=== PATIENT | female | born 1995 | race Caucasian/White ===

== ENCOUNTER 2020-11-20 00:57 | Outpatient (CLI) | payer MEDICAID ==
[~2020-11-20] VITALS: Ht 157.5 cm; Wt 70.0 kg
--- NOTE | 2020-11-20 01:05 | NUR ---
0105- PT PRESENTS TO LDR COMPLAINING OF CONTRACTIONS. AMBULATORY TO ROOM LR3, CHANGED INTO GOWN. 0114- EFM X2 APPLIED. PT DENIES LEAKING AMNIOTIC FLUID OR VAGINAL BLEEDING. STATES SHE FEELS BABY IS MOVING LESS THE LAST 2 DAYS, BUT STILL FEELING MOVEMENT. STATE SHE HAS BEEN ARIA MOST OF THE DAY BUT FEELS THEY ARE STRONGER NOW. PLAN OF CARE FOR LABOR CHECK DISCUSSED AND QUESTIONS ANSWERED. 0120- SVE BY THIS NURSE -. DISCUSSED WATCHING PT ON MONITORS FOR ABOUT AN HOUR AND RECHECKING CERVIX. PT IS AGREEABLE WITH THIS PLAN OF CARE. 0130- NURSING ADMISSION HISTORY AND ASSESSMENT COMPLETED. ORAL HYDRATION PROVIDED. 0200- PT SITTING A LITTLE FLAT, REPOSITIONED. 0230- PT REPORTS HER CONTRACTIONS ARE ABOUT THE SAME. SVE BY THIS NURSE UNCHANGED. DISCUSSED WITH PT GOING HOME AT THIS POINT AND SHE IS OK WITH THIS. PT OFF MONITORS. 0235- DR PETERSEN CALLED CHARTED AND ORDERS RECEIVED. 0250- DISMISSAL INSTRUCTIONS GIVEN AND PT VERBALIZES UNDERSTANDING. PT IS DISMISSED TO HOME AMBULATORY ACCOMPANIED BY SPOUSE.
[2020-11-20 01:30] VITALS: BP 112/64; PULSE 99; TEMP 98.6
[2020-11-20] MEDS ORDERED: PRENATAL VITAMI1 TA3 PO (01:35)
[2020-11-20] MEDS ORDERED: PRILOSEC10 MG PO (01:36)
[2021-04-25] MEDS ORDERED: PERCOCET 325 MG1 TA2 PO (12:11)
== END 2020-11-20 02:50 | disposition home or self-care (01) ==
LOC: LDRO 00:57 → LDR 01:23 → LDRO 02:50
DX: O62.9 Abnormality of forces of labor, unspecified (principal); Z3A.39 39 weeks gestation of pregnancy
CPT/HCPCS: OP

== ENCOUNTER 2020-11-20 16:17 | Outpatient (CLI) | payer MEDICAID ==
[~2020-11-20] VITALS: Ht 157.5 cm; Wt 70.5 kg
[~2020-11-20 16:17] MED LIST: PRENATAL VITAMI1 TA3 PO; PRILOSEC10 MG PO
--- NOTE | 2020-11-20 16:30 | NUR ---
Pt arrived on unit ambulatory with complaints of contractions and increased discharge. Pt denies any vaginal bleeding and reports normal movement. EFM and toco monitors started. Vital signs WNL. SVE done 1- with negative amnio-trace and no fluid on exam. Information reviewed with Dr. Walker. Orders for labor assessment received.
[2020-11-20 17:03] VITALS: BP 114/65; PULSE 98; TEMP 98.2
[2021-04-25] MEDS ORDERED: PERCOCET 325 MG1 TA2 PO (12:11)
== END 2020-11-20 17:15 | disposition home or self-care (01) ==
LOC: LDRO 16:17
DX: O62.9 Abnormality of forces of labor, unspecified (principal); Z3A.39 39 weeks gestation of pregnancy

== ENCOUNTER 2020-11-27 14:37 | Inpatient (IN) | payer MEDICAID ==
[~2020-11-27] VITALS: Ht 157.5 cm; Wt 68.6 kg
[2020-11-27] VITALS (32 sets, daily range): BP systolic 101–139; BP diastolic 55–79; PULSE 67–101; TEMP 97.6–98.3
--- NOTE | 2020-11-27 14:40 | NUR ---
Patient arrives ambulatory with spouse for direct admission and induction of labor for GINA of 0 in office today. Patient reports normal movement, denies ROM or vaginal bleeding. Patient changes into gown, EFM explained and placed. VS obtained. Previous orders per Dr. Walker to admit and start Pitocin induction. 1505- IV started by Patricia Mcdonnell RN. Labs obtained and sent. LR infusing per protocol. Consents explained and signed. Assessment completed. Reviewed plan of care for induction, patient agrees and denies questions. Report to Patricia Umaña RN who assumes care of patient.
--- NOTE | 2020-11-27 14:48 | NUR ---
EFM placed on patient.
[2020-11-27 15:37] LABS: HEMOGLOBIN 10.5 g/dl (12.5-16.0); MEAN CELL VOLUME 82 fl (80.0-100.0); MEAN CORPUSCULAR HEMOGLOBIN 27 pg (27.0-31.0); MEAN CORPUSCULAR HGB CONC 33 g/dl (33.0-37.0); MEAN PLATELET VOLUME 9.4 fl (7.4-10.4); PLATELET COUNT 352 K/mm3 (130-400); RED BLOOD COUNT 3.85 M/mm3 (4.10-5.30); REDCELL DISTRIBUTION WIDTH-CV 14.5 % (11.5-14.5)
[2020-11-27 15:45] LABS: HEMATOCRIT 31.6 % (37.0-47.0)
--- NOTE | 2020-11-27 16:00 | NUR ---
Pit start @ 2mU/min @ this time, after noting reactive strip. Explanation to patient and spouse. Verbalizes understanding. Patient mentions that she was here for possible leaking fluid one week ago, that amnitrace was negative. Reports since then, her underwear have been constantly moist. Denies any leaking down legs.
--- NOTE | 2020-11-27 16:39 | NUR ---
Intermittent late decelerations noted. Repositioned to right lateral. Will continue to monitor.
[2020-11-27 17:29] LABS: BAND 13 % (0-10); LYMPHOCYTE 12 % (20.0-51.0); METAMYELOCYTE 1 % (0-0); NEUTROPHILS 68 % (42.0-75.2)
[2020-11-27 17:33] LABS: PLATELET ESTIMATE NORMAL (NORMAL)
--- NOTE | 2020-11-27 18:29 | NUR ---
Report given to NATALIE Polanco, who will resume care from this point forward.
--- NOTE | 2020-11-27 20:00 | NUR ---
1999- DR. RAPP AND THIS RN TO BEDSIDE FOR SVE EVALUATION. SVE UNCHANGED PER PROVIDER. STILL /-3. PROVIDER GAVE VERBAL ORDER TO INCREASE PITOCIN TOLERATED AND TO GO UP TO 30 IF NEEDED. THIS RN CHANGED PITOCIN FROM 16 TO 18 AT THIS TIME AND VERBALIZED UNDERSTANDING OF INCREASING PITOCIN. PATIENT ALSO VERBALIZED AT THIS TIME THAT SHE WOULD LIKE HER EPIDURAL. DISCUSSED PLAN AND THAT I WOULD CALL [facility] AND GET THEM HERE. SHE VERBALIZED UNDERSTANDING WITH NO FURTHER QUESTIONS AND CALL LIGHT WITHIN REACH.
--- NOTE | 2020-11-27 22:30 | NUR ---
2230- THIS RN TO BEDSIDE TO REPOSITION PATIENT. PATIENT REQUESTED SVE, SO THIS RN CHECKED PATIENT. 2232- SVE REVEALED 4/70/-3 WITH SOME BLOODY SHOW. 2234- PATIENT THEN ASSISTED TO ETHAN POSITION. 2237- FHR VARIABLE EARLY DECELERATION DOWN TO 70'S NOTED. PATIENT SAT BACK IN THE BED AND REPOSITIONED. 2240- FHR VARIABLE EARLY DECELERATION DOWN TO 100'S NOTED. 2242- FHR VARIABLE EARLY DECELERATION DOWN TO 70S NOTED AGAIN. HELPED PATIENT REPOSITIONED TO A WEDGE LEFT POSITION. 2245- FHR VARIABLE DECELERATION AUDIBLE, BUT NOT TRACING WELL. REPOSITIONED TO A LEFT LATERAL POSITION. 224- BLOOD PRESSURE TAKING AND NOTED TO BE 96/51 AND PATIENT REPORTED FEELING A LITTLE LIGHT HEADED. FLUIDS OPENED WIDE FOR BOLUS AT THIS TIME. THIS RN RETOOK BP AND IT WAS 100/55 AND PATIENT VERBALIZED FEELING A LITTLE BETTER. THIS RN WAITED A MINUTE OR SO AND RETOOK BP AND IT WAS 95/56 AND PATIENT VERBALIZED FEELING A LITTLE FUNNY. THIS RN ASKED CHARGE TO BRING EPHEDERINE IN THE ROOM SHE WAS BRINGING BABY STUFF FOR DELIVERY AT THIS TIME TO THE ROOM 225- 10MG OF EPHEDERINE GIVEN IV BY THIS RN. BP NOTED TO BE 96/54 AT THIS TIME. 5- BP NOTED TO BE 109/59 AND PATIENT VERBALIZED THAT SHE WAS STARTED TO FEEL BETTER BUT FELT A LITTLE SHAKY. OFFERED WARM BLANKET AND PATINET ACCEPTED. 2300- APPLE JUICE GIVEN TO PATIENT PER HER REQUEST. BP NOTED TO BE 109/62 AND PATIENT VERBALIZED FEELING MUCH BETTER. THIS RN SLOWED FLUIDS DOWN AND PATIENT DENIED FURTHER NEEDS. CALL LIGHT WITHIN REACH.
[2020-11-28] VITALS (19 sets, daily range): BP systolic 98–121; BP diastolic 48–85; PULSE 67–94; TEMP 97.6–98
--- NOTE | 2020-11-28 01:40 | NUR ---
0140- DR. SALAZAR AND THIS RN TO BEDSIDE FOR SVE. PATIENT IS COMPLETE AND +2. PATIENT AND ROOM PREPPED FOR DELIVERY. STAFF NOTIFIED AND NURSERY ON THERE WAY. 0148- FIRST PUSH WITH PROVIDER. 0149- HEAD DELIVERED AND TIGHT NUCHALX2 NOTED BY PROVIDER. PROVIDER CLAMPED AND CUT CORD TO REDUCE. ONCE THIS WAS DONE MOM PUSHED TO DELIVERY BODY 0150- OF VIABLE FEMALE INFANT. INFANT CLEANED AND SUCTIONED AND STIMULATED BY PROVIDER DURING THIS TIME. UMBILICAL CORD CLAMPED AND CUT BY FATHER. THEN WENT TO [facility] TO BE ASSESSED BY NURSERY NURSES. THEY ASSUMED CARE DURING THIS TIME. PITOCIN TURNED OFF DURING THIS TIME AND REPROGRAMMED FOR DELIVERY OF PLACENTA 0154- OF PLACENTA. PITOCIN TURNED ON PER PROTOCOL AT 333ML/HR. PROVIDER NOTED PATIENT WAS INTACT WITH A 2 SMALL ABRASIONS THAT DID NOT NEED STITCHES BY THE PATIENT'S URETHRA. DISCUSSED CARE FOR THESE. FUNDUS MASSAGED FIRM BY PROVIDER DURING THIS TIME. PROVIDER NOTED EBL TO BE 200. 0200- PATIENT AND ROOM CLEANED UP, VITALS STABLE, FUNDUS FIRM. NEW CHUX PAD, PERIDPAD AND ICEPACK TO PERINEUM. RECOVERY STARTED.
--- NOTE | 2020-11-28 05:15 | NUR ---
PATIENT UP TO RESTROOM FOR THE FIRST TIME. AMBULATED TO BATHROOM WITH NO ISSUES. PATIENT CLEANED UP AND CHANGED INTO CLEAN CLOTHES. PATIENT VOIDED 900 AT THIS TIME. PATIENT AMBULATED TO ROOM WITH NO COMPLICATIONS AND WAS ORIENTATED TO ROOM. PATIENT DENIES NEEDS AT THIS TIME. CALL LIGHT WITHIN REACH.
--- NOTE | 2020-11-28 10:30 | NUR ---
Initial visit; Parents thanked Odd Ticket Clerk for offering congratulations and God's blessings for the of their daughter. Odd Ticket Clerk thanked family for choosing [facility]/via [facility].
[2020-11-29 00:30] VITALS: BP 125/60; PULSE 72; TEMP 98.5
[2020-11-29 04:35] VITALS: BP 93/69; PULSE 75; TEMP 97.9
[2020-11-29 07:30] VITALS: BP 93/48; PULSE 69
[2020-11-29] MEDS ORDERED: IBU800 M1 PO (08:45)
[2020-11-29] MEDS ORDERED: PERCOCET 325 MG1 TA2 PO (08:45)
--- NOTE | 2020-11-29 11:46 | NUR ---
1115 DISCHARGE INSTRUCTIONS REVIEWED WITH PATIENT. PATIENT VERBALIZED UNDERSTANDING. WILL GATHER ALL PERSONAL BELONGINGS AND LET THIS RN KNOW WHEN SHE IS READY TO LEAVE. 1140 ALL PERSONAL BELONGINGS GATHERED FROM PATIENT ROOM. PATIENT LEFT AMBULATORY AND IN NO APPARENT DISTRESS. PATIENT ACCOMPANIED BY SPOUSE AND THIS RN.
[2021-04-25] MEDS ORDERED: PERCOCET 325 MG1 TA2 PO (12:11)
== END 2020-11-29 11:40 | disposition home or self-care (01) | DRG 807 ==
LOC: LDRO 14:37 → LDR 14:40 → OB 14:40
PROVIDERS: ADMIT Obstetrics & Gynecology
PROC: 10E0XZZ Delivery of Products of Conception, External Approach (ICD-10-PCS; principal; 2020-11-27)
PROC: 3E033VJ Introduction of Other Hormone into Peripheral Vein, Percutaneous Approach (ICD-10-PCS; 2020-11-27)
DX: O41.03X0 Oligohydramnios, third trimester, not applicable or unspecified (principal); Z37.0 Single live birth; O48.0 Post-term pregnancy; O99.02 Anemia complicating childbirth; D64.9 Anemia, unspecified; O69.1XX0 Labor and delivery complicated by cord around neck, with compression, not applicable or unspecified; Z3A.40 40 weeks gestation of pregnancy
CPT/HCPCS: J2590; J7120

== ENCOUNTER 2021-02-09 15:39 | Emergency (ER) | payer MEDICAID ==
[~2021-02-09] VITALS: Ht 157.5 cm; Wt 59.1 kg
[~2021-02-09 15:39] MED LIST changes: +IBU800 M1 PO; +PERCOCET 325 MG1 TA2 PO
[2021-02-09 16:01] VITALS: TEMP 98.9
[2021-02-09 16:55] LABS: BASO # 0.1 (0.0-0.2); EOS # 0.4 (0.0-0.7); GRAN # 5.7 (1.4-6.5); GRAN % 57.4 % (42.2-75.2); HEMATOCRIT 38.7 % (37.0-47.0); HEMOGLOBIN 13.1 g/dl (12.5-16.0); LYMPH # 2.8 (1.2-3.4); LYMPH % 28.3 % (20.0-51.0); MEAN CELL VOLUME 83 fl (80.0-100.0); MEAN CORPUSCULAR HEMOGLOBIN 28 pg (27.0-31.0); MEAN CORPUSCULAR HGB CONC 34 g/dl (33.0-37.0); MONO # 0.9 (0.1-0.6); PLATELET COUNT 337 K/mm3 (130-400); RED BLOOD COUNT 4.65 M/mm3 (4.10-5.30); REDCELL DISTRIBUTION WIDTH-CV 18.8 % (11.5-14.5)
[2021-02-09 17:01] LABS: ALANINE AMINOTRANSFERASE 25 U/L (4-34); ALBUMIN 4.2 gm/dL (3.5-5.0); ALKALINE PHOSPHATASE 46 U/L (50-136); ANION GAP 8 mmol/L (7-16); AST,SGOT 26 U/L (15-37); BLOOD UREA NITROGEN 11 mg/dL (7-17); CALCIUM 9.2 mg/dL (8.4-10.2); CARBON DIOXIDE 23 mmol/L (22-30); CHLORIDE 110 mmol/L (98-107); CREATININE, serum 0.85 (0.52-1.25); GLUCOSE 100 mg/dL (74-106); POTASSIUM 3.5 mmol/L (3.4-5.0); SODIUM 141 mmol/L (137-145)
[2021-02-09 17:21] LABS: TROPONIN-I < 0.012 ng/mL (0.000-0.035)
[2021-02-09 18:19] VITALS: BP 106/65; PULSE 67
[2021-04-25] MEDS ORDERED: PERCOCET 325 MG1 TA2 PO (12:11)
== END 2021-02-09 18:19 | disposition home or self-care (01) ==
LOC: COL.ER 15:39
PROVIDERS: Personal Emergency Response Attendant
DX: R07.9 Chest pain, unspecified (principal); R51.9 Headache, unspecified; R00.2 Palpitations; R79.1 Abnormal coagulation profile; F17.290 Nicotine dependence, other tobacco product, uncomplicated
CPT/HCPCS: J0780; J1885; J7030

== ENCOUNTER 2021-04-19 11:48 | Day surgery (SDC) | payer MEDICAID ==
[~2021-04-19] VITALS: Ht 158.8 cm; Wt 59.4 kg
[2021-04-19 12:22] VITALS: BP 106/71; PULSE 78; TEMP 98.2
[2021-04-19] MEDS ORDERED: MOTRIN 600600 MG/TAB PO (15:26)
[2021-04-19] MEDS ORDERED: PERCOCET 325 MG1 TA2 PO (15:26)
[2021-04-19] MEDS ORDERED: COLACE 100100 MG/CAP PO (15:26)
[2021-04-19 16:36] VITALS: BP 107/65; PULSE 77; TEMP 97.7
--- NOTE | 2021-04-19 16:36 | NUR ---
The patient arrived back to Day 6 from the recovery room at this time. The patient appears alert and oriented and denies any pain or nausea at this time. The patient agrees to try some coffee and toast at this time. Post operative vital signs were started at this time. Call light is within reach. The patient denies any further needs at this time. Will continue to monitor the patient.
[2021-04-19 16:51] VITALS: BP 110/63; PULSE 85
--- NOTE | 2021-04-19 16:51 | NUR ---
The patient appears to be tolerating the food and drink well. Vital signs appear stable. Call light is within reach. The patient continues to deny any pain or nausea at this time. Will continue to monitor the patient.
[2021-04-19 17:06] VITALS: BP 108/68; PULSE 78
--- NOTE | 2021-04-19 17:06 | NUR ---
The patient has finished her food and drink and appeared to tolerate both well. The patient voices a desire to ambulate to the bathroom. She did so with a steady gait and voided without difficulty. The nurse instructed the patient to get dressed and notify the staff whe she is ready to review her discharge instructions. The patient's mother was brought back from the waiting room to be at her bedside.
--- NOTE | 2021-04-19 17:14 | NUR ---
Discharge instructions were reviewed with the patiet and her mother at this time. They both verbalized understanding and have no questions for the nurse at this time. The patient's IV to her left wrist was removed and a pressure dressing was applied to the site. The patient is dressed and ready to be escorted out.
--- NOTE | 2021-04-19 17:20 | NUR ---
The patient was escorted out via wheelchair to a private vehicle by NATALIE Ledezma. The patient's belongings and discharge paperwork were sent with her. The patient's mother is present to drive her home.
[2021-04-25] MEDS ORDERED: PERCOCET 325 MG1 TA2 PO (12:11)
== END 2021-04-19 17:20 | disposition home or self-care (01) ==
LOC: SDCO 11:48
DX: K64.2 Third degree hemorrhoids (principal); K64.4 Residual hemorrhoidal skin tags; D64.9 Anemia, unspecified; K21.9 Gastro-esophageal reflux disease without esophagitis; G89.29 Other chronic pain; M54.9 Dorsalgia, unspecified; F41.9 Anxiety disorder, unspecified; F32.A Depression, unspecified; F17.210 Nicotine dependence, cigarettes, uncomplicated; Z79.899 Other long term (current) drug therapy
CPT/HCPCS: J0690; J1100; J1885; J2405; J2704; J3010; J7120

== ENCOUNTER → 2021-06-27 | Outpatient (CLI) | payer MEDICAID ==
[~2021-06-27] MED LIST changes: +COLACE 100100 MG/CAP PO; +MOTRIN 600600 MG/TAB PO
== END ==
LOC: MHCPAIN 14:13
DX: M54.50 Low back pain, unspecified (principal); M53.3 Sacrococcygeal disorders, not elsewhere classified; M41.26 Other idiopathic scoliosis, lumbar region; G89.29 Other chronic pain
CPT/HCPCS: G0463